=== PATIENT | female | born 1970 | race African-American/Black ===

== ENCOUNTER 2023-12-02 23:58 | Observation (INO) | payer SELFPAY ==
[2023-12-02] VITALS (7 sets, daily range): BP systolic 111–132; BP diastolic 86–96; BMI 28.6
--- NOTE | 2023-12-02 16:02 | ED.GENMED ---
History of Present Illness
General
Chief Complaint: Abdominal Symptoms
Source: patient
Exam Limitations: none
Time Seen by Provider: 12/02/23 15:48
Nursing documentation reviewed up to this point in time: agreed with
History of Present Illness
History of Present Illness:
53-year-old female presents emergency room complaining of pelvic pressure for 7 days. She was seen at [facility] on Sunday. She had some feet numbness, vaginal bleeding. She also notes chest pain and shortness of breath when walking
upstairs.
Past History
Past History
ED Past Medical History: Negative CAD or CHF
Social History
Tobacco: Non-smoker
Alcohol: None
Drug: None
Review of Systems
Review of Systems
Allergies reviewed?: Yes
All Other Systems: Not applicable
Constitutional: Reports no symptoms; Denies fever
EENT: Reports no symptoms
Respiratory: Reports trouble breathing
Cardiac: Reports chest pain
ABD/GI: Reports abdominal pain
: Reports no symptoms
Musculoskeletal: Reports no symptoms
Skin: Reports no symptoms
Neurological: Reports no symptoms
Endocrine: Reports no symptoms
Hematologic/Lymphatic: Reports no symptoms
Psychiatric: Reports no symptoms
Phy Exam
Physical Exam
Physical Exam:
Physical Exam
General: Appears uncomfortable, afebrile
Neck: supple. no meningeal signs. normal posterior pharynx
Heart: s1/s2 regular rate and rhythm, no murmur. equal radial
pulses.
HEENT: Pupils equal round reactive to light, EOMI
Lungs: no acute respiratory distress. clear bilaterally
Abdomen: normal bowel sounds. Left lower quadrant tenderness. No CVAT
Neuro: alert and oriented. no focal neurological deficits cranial nerves II through XII intact
Skin: no rash
Psychiatric: well kept. interactive and cooperative
Extremities: no edema. no calf tenderness. negative homans. good distal pulses
Scores
Heart Score for Chest Pain Patients
STEMI patient?: No
History: Slightly or Non-Suspicious
ECG: Normal
Age: >45 - <65 years
Risk Factors: 1 or 2 Risk Factors
Troponin: </= Normal Limit
Heart Score for Chest Pain Patients: 2
Heart Score Risk: 2.5% MACE over next 6 weeks
Course
Orders/Labs/Results
Orders:
Orders
12/02/23 15:16
EKG [Electrocardiogram (*1)] Urgent
Reason for Study: Chest Pain
EKG- Treatment ONCE
12/02/23 15:58
IV Insert/Care/Rem.- Treatment PRN
Ketorolac [Toradol] 15 mg IV NOW STA
Pulse Ox/cont/shift [RESP] Stat
Quantity: 1
12/02/23 15:59
CT Abd/Pel (IV only)-DH only Urgent
Comment:
Reason For Exam: LLQ abd pain
12/02/23 16:00
CMP [Comprehensive Metabolic Panel] Urgent
Complete Blood Count/With Diff Urgent
US Pelvis W Transvag Combined Urgent
Comment:
Reason For Exam: LLQ pelvic pain
12/02/23 16:05
Urinalysis Reflex To Culture Urgent
Date Specimen was Collected: 12/02/23
Time Specimen was Collected: 16:02
Urine Microscopic Reflex Cult Urgent
12/02/23 16:06
Troponin I Urgent
12/02/23 22:22
HYDROmorphone [Dilaudid] 0.25 mg IV NOW STA
Ketorolac [Toradol] 15 mg IV NOW STA
12/02/23 23:55
Admit/Transfer Patient As Directed
Co-Sign Provider:
Level of Care: Observation services
Assign to:: Telemetry
Physician / Group: Dharmesh/Hospitalist
Diagnosis: chest pain, left lower quadrant abdominal pain, vaginal bleeding
Reason for Telemetry: Chest Pain syndromes
Date to Stop Telemetry: 12/04/23
Time to Stop Telemetry: 11:00
PRN Pain Medication Management As Directed
May give lesser potent ordered pain med per pt: Yes
preference::
Protocol:: Medication orders for pain may be administered in a
manner that supports deferring to patient preference
when the pt is:
- Requesting an ordered lesser potent pain medication.
Least to most potent pain medications are defined
as: acetaminophen < NSAID < tramadol < opioids
(morphine, oxycodone, hydromorphone).
- Requesting a lesser dose of the same medication IF
ORDERED.
- Requesting a less intrusive route of administration
if both routes are prescribed by the provider (PO <
IV).
12/03/23 06:00
Levothyroxine [Synthroid] 200 mcg PO DAILY @ 0600
12/03/23 08:00
Lisinopril [Zestril] 10 mg PO DAILY
Sertraline HCl [Zoloft] 200 mg PO DAILY
12/04/23 11:00
DC Protocol for Telemetry ONCE
Abnormal Lab Results
12/02/23 12/02/23
16:00 16:05
RBC 3.52 L 10^6/uL
(4.20-5.40)
Hgb 11.9 L g/dL
(12.0-16.0)
Hct 34.9 L %
(37.0-47.0)
MCV 99.1 H fL
(81.0-99.0)
MCH 33.8 H pg
(27.0-31.0)
Abs Immat Gran (auto) 0.1 H 10^3/uL
(0-0.05)
Immature Gran % 0.6 H %
(0-0.5)
Lymphocytes % 17.8 L %
(20.5-51.1)
BUN 18 H mg/dl
(7-17)
Ur Occult Blood Reflex 2+ A
(Negative)
Urine RBC 3-6 A /HPF
(0-2)
Urine Bacteria (Reflex) Few A
(Negative)
12/02/23 16:00
12/02/23 16:00
Vital Signs
Initial and Last Documented VS:
Initial Vital Signs
Temp Pulse Resp BP Pulse Ox
97.8 F 82 16 121/87 100
12/02/23 15:23 12/02/23 15:23 12/02/23 15:23 12/02/23 15:23 12/02/23 15:23
Last Documented Vital Signs
Temp Pulse Resp BP Pulse Ox
98.0 F 89 18 130/88 100
12/03/23 19:17 12/03/23 19:17 12/03/23 19:17 12/03/23 19:17 12/03/23 19:17
MDM/Problems Addressed
Differential Diagnosis Includes:
Ovarian torsion, diverticulitis, UTI
MDM/Problems Addressed:
53-year-old female with left lower abdominal pain. Concern for cyst versus torsion versus diverticulitis. Ultrasound and CT scan pending.
*Radiology
Radiology exam reviewed: radiology read reviewed (CT abdomen pelvis shows no acute pathology, ventral hernia, sclerosis of left pubic symphysis, pelvic ultrasound shows small uterine fibroid normal ovarian blood flow, chest x-ray no acute findings)
*Pulse Oximetry
Patient hypoxic: no
*EKG
Interpreted by ED Provider?: Yes
EKG Intrepretation Date: 12/02/23
EKG Intrepretation Time: 15:16
Interpretation: normal
Comparison EKG: no comparison EKG present
Heart Rate: 73
Rate: normal
Rhythm: sinus
Elcho: normal axis
Interval: normal interval
QRS Pattern: normal QRS
Ischemia: no ischemia
*Rebar Bender Interpretation
Rate: normal
Interpretation: normal
Heart Rate: 70
Rhythm: sinus
*Critical Care Note
Total Time (30-74mins, 75-104mins- exclusive of procedures): Not Applicable
Update Note
Update Note:
Patient admitted for atypical chest pain, left lower quadrant pain, vaginal bleeding, incidental sclerosis of left pubic symphysis, peripheral neuropathy
ED Attending Note
-
Portions of this chart may have been created with voice recognition software.� Occasional wrong word or��sound alike� substitutions may have occurred due to the inherent limitations of voice recognition software.
Discharge Plan
Departure
Patient Disposition: Admit
Date of Disposition: 12/02/23
Time of Disposition: 23:55
Admit to: Telemetry
Presentation/result/management discussed w/ accepting MD/DO: Hospitalist
Patient with high blood pressure during this ER visit?: Yes
Condition: Good
Discharge Problem:
Chest pain, Peripheral neuropathy, Abdominal pain, left lower quadrant, Vaginal bleeding
Interventions
Interventions:
*Risk Screen - Suicide Last Done: 12/02/23 15:23
*General Assessment Last Done: 12/02/23 15:23
*Neglect/Abuse Screening Last Done: 12/02/23 15:23
ED- Fall Risk Assessment Last Done: 12/02/23 15:57
*ED COVID-19 Vaccine History Last Done: 12/02/23 15:23
*Nursing Disposition Last Done: 12/03/23 02:53
AM-Zxefwy-Cwaboxgzlb Assessment Last Done: 12/02/23 20:40
Discharge Date and Time
Discharge Date/Time: 12/03/23 02:53
[2023-12-02] MEDS: TORADOL 15 MG IV ×2 (16:06→22:30)
[2023-12-02 16:34] LABS: ALT (SGPT) 19 U/L (0-35); AST (SGOT) 33 U/L (14-36); Alkaline Phosphatase 89 U/L (38-126); Blood Urea Nitrogen 18 mg/dl (7-17); Calcium 10.2 mg/dl (8.4-10.2); Carbon Dioxide 25 mmol/L (22-30); Chloride 101 mmol/L (98-107); Estimated Creatinine Clearance 65 ml/min; Glucose 86 mg/dl (70-99); Potassium 4.6 mmol/L (3.5-5.1); Sodium 135 mmol/L (135-145); Total Bilirubin 0.7 mg/dl (0.2-1.3); eGFR > 60.00
[2023-12-02 16:47] LABS: Troponin I < 0.012 ng/ml
[2023-12-02 16:51] LABS: Urine Albumin Negative (Neg - Trace); Urine Bilirubin Negative (Negative); Urine Character Clear (Clear); Urine Color Yellow; Urine Glucose Negative (Negative); Urine Ketone Negative (Negative); Urine Leukocyte Negative (Negative); Urine Nitrite Negative (Negative); Urine Occult Blood 2+ (Negative); Urine Specific Gravity 1.015 (<1.030); Urine Urobilinogen Negative (Neg - 1+)
[2023-12-02 16:58] LABS: % Basophils 0.2 % (0-2); % Eosinophils 1.6 % (0-6); % Immature Granulocytes 0.6 % (0-0.5); % Lymphocytes 17.8 % (20.5-51.1); % Monocytes 6.8 % (1.7-9.3); Absolute Eosinophils 0.1 10^3/uL (0-0.7); Absolute Immature Granulocytes 0.1 10^3/uL (0-0.05); Absolute Lymphocytes 1.5 10^3/uL (1.2-3.4); Absolute Monocytes 0.6 10^3/uL (0.1-0.6); Absolute Neutrophils 6.2 10^3/uL (1.4-6.5); Hematocrit 34.9 % (37.0-47.0); Hemoglobin 11.9 g/dL (12.0-16.0); Mean Corp Hgb Conc. 34.1 g/dL (33.0-37.0); Mean Corpuscular Hgb 33.8 pg (27.0-31.0); Mean Corpuscular Volume 99.1 fL (81.0-99.0); Mean Platelet Volume 9.4 fL (7.4-10.4); Nucleated Red Blood Cells % 0 %; Platelet Count 354 10^3/uL (130-400); Red Blood Cell Count 3.52 10^6/uL (4.20-5.40); Red Cell Dist. Width 13.7 % (11.5-14.5); White Blood Cell Count 8.5 10^3/uL (4.8-10.8)
[2023-12-02 16:59] LABS: Urine Bacteria Few (Negative); Urine White Cell 0-2 /HPF (0-5)
--- NOTE | 2023-12-02 20:48 | EDRN ---
Pt complains of chest pressure in the middle of her chest that 'feels like somebody is sitting on it' and started today. Pressure is constant and sometimes radiates into R chest 'and it feels like I swallowed something and it got stuck.' Pt also
has LLQ abdominal pain that waxes and wanes since yesterday. Pt says she 'felt like I was kicked in my back and side yesterday and I suddenly vomited.' Pt adds she had what seemed like a period yesterday that started around 0100. Pt had not had a
period in 4-5 years. Today, blood dried up and pt reports spotting only. Pt feels she is retaining water and says her hands and feet feel swollen. Pt has had chills and dry cough. No fever. Pt notes burning at the end of urination and says she
has frequency which is normal for her. No n/v now but she did have it yesterday. No sob, weakness, dizziness.
[2023-12-02] MEDS: DILAUDID 0.25 MG IV (22:32)
[2023-12-03] VITALS (9 sets, daily range): BP systolic 95–130; BP diastolic 62–93; BMI 27.9
--- NOTE | 2023-12-03 00:12 | HPS.HSE ---
Addendum entered and electronically signed by Alexandrea Barroso DO 12/03/23 01:19:
n/a
Original Note:
Family Physician
-
Family Physician: * NONE
Chief Complaint
-
Chest pain, left lower quadrant abdominal pain, vaginal bleeding
History of Present Illness
The patient is a 53 year old woman with PMH significant for Grave's disease, GERD, HLD, tension headache, IBS, MDD, PTSD who presents to the ED initially with substernal chest pain that feels like a lump in the throat, non-radiating, improved
currently. She also had episode of vaginal bleeding yesterday and today(after 4 years of no menses), associated with low back pain and the sensation of feeling like she was kicked in the left lower quadrant. She also is c/o numbness and tingling in
the b/l feet. Pain is improving in the ED p Toradol and Dilaudid. No focal neuro deficits, no SOB currently, no palpitations, no syncope, no ESPARZA, no LOC, no dysuria, no GI bleeding. CT a/p and US pelvis performed in ED.
Medical History
Past Medical History
Past Medical History: Reports GERD, Hypercholesterolemia, Psychiatric (MDD, PTSD) and Other (tension headache, IBS, )
Past Surgical History: Reports Other (breast biopsy, hemorrhoidectomy , partial thyroidectomy)
Social History
Tobacco: Non-smoker
Alcohol: Occasional
Family History
Family History: Cancer (breast-mom) and Other (cerebral aneurysm, mom-colon polyps, Lupus, stroke)
Allergies / Home Medications
Allergies reflects when Allergies were last updated in [facility].
Home Medications with original date entered in [facility]
Allergy/Medication List:
Allergies
Allergy/AdvReac Type Severity Reaction Status Date / Time
No Known Allergies Allergy Verified 12/02/23 15:32
Home Medications
Wellbutrin 1 tab PO DAILY 12/02/23 -dose pending med rec
levothyroxine 200 mcg tablet (Synthroid) 200 mcg PO DAILY 12/02/23
lisinopril 10 mg tablet 10 mg PO DAILY 12/02/23
sertraline 200 mg capsule 200 mg PO DAILY 12/02/23
Review of Systems
-
A 12 point ROS was completed and negative except as noted: Yes
Physical Exam
Vital Signs
Vital Signs
Temp Pulse Resp BP Pulse Ox
97.8 F 82 16 130/93 100
12/02/23 20:40 12/03/23 00:00 12/02/23 20:40 12/03/23 00:00 12/02/23 20:40
Physical Exam
General: Well Developed, Well Nourished, No Apparent Distress, Comfortable and Conversant
HEENT: NormoCephalic, Anicteric and Moist mucous membranes
Respiratory: Clear
Cardiac: S1/S2 and Regular Rhythm
GI: Soft, Non Tender, Non Distended and Normal Bowel Sounds
Musculoskeletal: No Clubbing, No Cyanosis and No Edema
Skin: Warm and Dry
Neuro: AO x 3, No Motor Deficits and Nonfocal/grossly intact
Psych: Calm
Laboratory Results
-
12/02/23 16:00
12/02/23 16:00
Laboratory Results
Total Bilirubin 0.7 mg/dl (0.2-1.3) 12/02/23 16:00
AST 33 U/L (14-36) 12/02/23 16:00
ALT 19 U/L (0-35) 12/02/23 16:00
Alkaline Phosphatase 89 U/L (38-126) 12/02/23 16:00
Troponin I < 0.012 ng/ml 12/02/23 16:06
Data Reviewed
-
CT Scan: Report Reviewed by me
Medical Tests (Nuc Med, Echo, EKG etc): Report Reviewed by me
Impression/Plan
-
IMPRESSION: The patient is a 53 year old woman with PMH significant for Grave's disease, GERD, HLD, tension headache, IBS, MDD, PTSD who presents to the ED initially with substernal chest pain that feels like a lump in the throat, non-radiating,
improved currently. She also had episode of vaginal bleeding yesterday and today(after 4 years of no menses), associated with low back pain and the sensation of feeling like she was kicked in the left lower quadrant. She also is c/o numbness and
tingling in the b/l feet.
#Atypical chest pain, risk factors of HTN, HLD
-admit obs, tele monitoring
-serial troponin
-repeat EKG prn
-aspirin one dose now
-cardiac labs in am
#Left lower quadrant pain a/w vaginal bleeding, new onset
-no ovarian torsion, view of ovaries limited on US, no visualized masses, no free fluid, noted Small degenerated uterine fibroid
- No acute pathology of the abdomen or pelvis identified on CT a/p-there is small fat-containing ventral hernia without incarceration nor strangulation
-hgb 11.9, repeat in am
-Comptometer Operator consulted regarding uterine findings and vaginal bleeding
# Incidental finding on CT- Sclerosis of the left pubic symphysis, unknown etiology- unlikely to be etiology of pain though this is possible, ED physician told patient about this result
-per my discussion she is up to date on preventative care including mammo/colonoscopy, unknown regarding pap smear
-Calcium is normal, albumin is top normal 5.0
-Discuss for team in the morning to address with consultation- to consider further work-up/imaging as inpatient vs outpatient with further imaging/lab work
#Neuropathy, peripheral
-MCV elevated 99.1, check B-12 and folate levels
#MDD
-continue home meds (need med rec for Wellbutrin 1 tab PO DAILY -dose pending med rec
#Graves disease
-levothyroxine 200 mcg tablet (Synthroid) 200 mcg PO DAILY
#HTN
-contlisinopril 10 mg tablet 10 mg PO DAILY 12/02/23
sertraline 200 mg capsule 200 mg PO DAILY 12/02/23
DVT proph-PCDs
Full Code
[2023-12-03] MEDS: LOW STRENGTH ASPIRIN 81 MG PO (00:18)
[2023-12-03] MEDS: ULTRAM 50 MG PO ×3 (03:39→16:24)
[2023-12-03] MEDS: NSS 1000 IV (03:39)
[2023-12-03 04:02] LABS: Troponin I < 0.012 ng/ml
[2023-12-03] MEDS: SYNTHROID 200 MCG PO (05:43)
[2023-12-03 07:37] LABS: Hematocrit 33.3 % (37.0-47.0); Hemoglobin 11.2 g/dL (12.0-16.0); Mean Corp Hgb Conc. 33.6 g/dL (33.0-37.0); Mean Corpuscular Hgb 33.2 pg (27.0-31.0); Mean Corpuscular Volume 98.8 fL (81.0-99.0); Mean Platelet Volume 9.2 fL (7.4-10.4); Platelet Count 330 10^3/uL (130-400); Red Blood Cell Count 3.37 10^6/uL (4.20-5.40); Red Cell Dist. Width 13.4 % (11.5-14.5)
[2023-12-03] MEDS: ZOLOFT 200 MG PO (07:41)
[2023-12-03] MEDS: ZESTRIL 10 MG PO (07:42)
[2023-12-03 07:57] LABS: Troponin I < 0.012 ng/ml
[2023-12-03 08:06] LABS: Blood Urea Nitrogen 19 mg/dl (7-17); Calcium 9.6 mg/dl (8.4-10.2); Carbon Dioxide 27 mmol/L (22-30); Chloride 102 mmol/L (98-107); Estimated Creatinine Clearance 53 ml/min; Glucose 91 mg/dl (70-99); Potassium 4.2 mmol/L (3.5-5.1); Sodium 136 mmol/L (135-145); eGFR 59.34
[2023-12-03 09:09] LABS: Folate 11.5 ng/ml (2.76-20); Vitamin B12 313 pg/ml (239-931)
[2023-12-03] MEDS: MIRALAX 17 GRAMS PO (10:24)
--- NOTE | 2023-12-03 12:52 | CM ---
Patient seen bedside, initial assessment completed. Patient resides independently in a multiple story home, one step to enter. Patients daughter sometimes lives with patient. Patient denies DME, VN, or SNF. Patient PCP [facility], pharmacy [facility]
Kamran López. Patient currently does not have insurance, agreeable to referral to [facility]. OBS form reviewed, refused to sign, placed in chart, patient provided with copy. Patient son in to visit. CM will continue to follow for all
discharge planning needs.
Plan; home no needs likely, referral made to [facility].
--- NOTE | 2023-12-03 13:28 | W.PN.HOSP.TC ---
Today's Communication/Plan
-
Chest x-ray to rule out rib fractures
MRI to assess for cause of radiculopathy
Start lidocaine patch
Assessment / Plan
Assessment / Plan
#Atypical chest pain -- risk factors of HTN, HLD
-Very low suspicion for cardiac cause
-Symptomatology not consistent, ECG is unremarkable Trop negative x 3
-Appears to be some reproducibility upon palpation to the chest wall today
-See no reason to continue with aspirin, will DC
-Will start lidocaine patch for chest wall
-Ordered chest x-ray to rule out previous fracture
#Left lower quadrant pain a/w vaginal bleeding, new onset
-no ovarian torsion, view of ovaries limited on US, no visualized masses, no free fluid, noted Small degenerated uterine fibroid
-No acute pathology CT A/P, there is small fat-containing ventral hernia without incarceration nor strangulation
-Hemoglobin trend 11.9 on arrival, 11.2 this morning though no more active bleeding per the patient
-Real Estate Executive Assistant consulted regarding uterine findings and vaginal bleeding
-Plan to follow-up gynecology recommendations
#Incidental finding on CT- Sclerosis of the left pubic symphysis
-unknown etiology- unlikely to be etiology of pain though this is possible, ED physician told patient about this result
-Previous hospitalist had discussion on routine cancer screening, it appears that she is up-to-date
-No signs of excessive bone turnover on labs, calcium normal as well as phosphorus
-Calcium is normal, albumin is top normal 5.0
-Discuss for team in the morning to address with consultation
#Neuropathy, peripheral
-MCV elevated 99.1, check B-12 and folate levels; may be related to hypothyroid history
-States that she has 'shock' like pain shooting down both legs
-Cannot rule out radiculopathy as well, ordered MRI lumbar spine to further assess
#MDD
-continue home meds
-No signs of acute depression, SI/HI negative
#H/O Graves disease
#Iatrogenic hypothyroidism
-No longer on antithyroid medications, suspect previous ablation or radioiodine therapy
-Home regimen includes levothyroxine 200 mcg daily, no signs or symptoms of normal thyroid function
#HTN
-Home medications include lisinopril 10 mg daily
-No known history of hypertensive systemic disease
-BP currently well-controlled
DVT proph-SCDs
Full Code
Anticipated Discharge: Within 24 hours
Subjective/Interval History
-
Date of Service: December 03, 2023
Objective Data
-
Labs:
Laboratory Results
12/03/23
07:15
WBC 6.0
Hgb 11.2 L
Hct 33.3 L
Plt Count 330
Sodium 136
Potassium 4.2
Chloride 102
Carbon Dioxide 27
BUN 19 H
Creatinine 1.1 H
Glucose 91
Calcium 9.6
Vital Signs:
Vital Signs
Temp Pulse Resp BP Pulse Ox
98.0 F 81 17 109/73 99
12/03/23 12:25 12/03/23 12:25 12/03/23 12:25 12/03/23 12:25 12/03/23 12:25
I&O
12/02/23 12/03/23 12/04/23
06:59 06:59 06:59
Intake Total 300 / 300
Balance 300 / 300
[2023-12-03] MEDS: SENOKOT-S 1 TABLET PO (16:02)
[2023-12-03] MEDS: LIDOCAINE 4% PATCH 1 PATCH TOPICAL (16:04)
--- NOTE | 2023-12-03 16:49 | CON.MD ---
Consultation - Medical
-
53yo presented to the ER yesterday due to chest pain, Low back pain, numbness of her feet, left lower quadrant pain and PMB. CONCRETE TRUCK DRIVER consulted to further evaluate her PMB. Patient states that she noticed sudden onset of 'moderate' bleeding 2 days
ago with associated LLQ pain, and pelvic pressure. She states the pain was exacerbated by lifting, bending, sitting and BM. The bleeding has since essentially resolved, noticed brown earlier today. The pressure in the pelvis also seems to have
resolved. Patient says she is 4 years post menopause, she denies trauma/intercourse prior to the onset of her bleeding. She denies noticing a mass/bulge in the vagina. She does have Urge incontinence > stress urinary incontinence. She has not seen
a CONCRETE TRUCK DRIVER in a while.
PMHx: grave's disease, PTSD, IBS, tension ESPARZA, HLD, GERD
PSHx: hemorrhoidectomy, anal fissure repair, benign breast lumpectomy
POBHx: SVDx2
PGYNHx: none significant
SHx:+ soc etoh, no ill/tobacco
FHx: Mom- breast CA, stroke, Lupus, colon polyps
Meds: see med list
All: NKDA
Vitals & Labs: See Below
gen: nad aaox3
abd: soft, nt, nd
Pelvic: inspection of the labia reveal no lesions/ulcers/erythema/discoloration. once labia is spread there is a small <1cm red/purple nodule at the left hymenal ring. non tender on palpation, no blood able to be expressed. no underlying cystic
structure palpable within the vagina/labia.
SSE: scant amount of white discharge in vagina, no new or old blood noted within the vagina or at the cervix. cervix is normal in appearance
SVE: no CMT, no uterine ttp, no adnexal mass palpable
Pelvic US: Uterus 7x 2.5x 5cm contains a small submucosal calcified fibroid 1cm. EMS evaluation is limited but measures 0.4cm. Ovaries view also limited. Right ovary 2.9cm. Left ovary 3.9cm. No adnexal mass seen. No free fluid in pelvis
A/P: 53yp HD#2 with Chest pain, neuropathy, LLQ pain and PMB
1. Vaginal Bleeding:
-seems to have resolved now. Hgb is stable
-I reviewed Pelvic US and exam findings with the patient. Her US is limited but overall unremarkable. No thickening of the endometrium. I do not think her bleeding was uterine in origin. Rather, I suspect the nodular lesion in the vagina was the
source of her bleeding, it could be that she had a cyst or hematoma in this area that ruptured. This could explain why she was also feeling pressure in the region that has since resolved. However, I cannot say with certainty as I only see a small
nodular lesion now. At this time, I do not recommend any other intervention while in the hospital but I did encourage her to follow up for routine CONCRETE TRUCK DRIVER care as an outpatient, this will also allow us to reevaluate the lesion for complete resolution or
change.
Encounter, discussion, review of imaging and Documentation Time= 40 minutes.
Vital Signs / Labs
-
Vital Signs and Labs:
Temp Pulse Resp BP Pulse Ox
98.0 F 92 18 95/77 99
12/03/23 15:07 12/03/23 15:07 12/03/23 15:07 12/03/23 15:07 12/03/23 15:07
12/03/23 07:15
12/03/23 07:15
12/02/23 12/02/23 12/03/23
16:00 16:05 07:15
RBC 3.52 L 3.37 L
Hgb 11.9 L 11.2 L
Hct 34.9 L 33.3 L
MCV 99.1 H
MCH 33.8 H 33.2 H
Abs Immat Gran (auto) 0.1 H
Immature Gran % 0.6 H
Lymphocytes % 17.8 L
BUN 19 H
Creatinine 1.1 H
Ur Occult Blood Reflex 2+ A
Urine RBC 3-6 A
Urine Bacteria (Reflex) Few A
[2023-12-03] MEDS: DILAUDID 0.25 MG IV ×2 (18:18→23:47)
[2023-12-04 03:19] VITALS: BP 113/69
[2023-12-04] MEDS: SYNTHROID 200 MCG PO (04:55)
[2023-12-04 05:33] VITALS: BMI 27.9
[2023-12-04 06:45] LABS: % Basophils 0.2 % (0-2); % Eosinophils 2.2 % (0-6); % Immature Granulocytes 0.6 % (0-0.5); % Lymphocytes 25.2 % (20.5-51.1); % Neutrophils 63.8 % (42.2-75.2); Absolute Eosinophils 0.1 10^3/uL (0-0.7); Absolute Lymphocytes 1.4 10^3/uL (1.2-3.4); Absolute Monocytes 0.4 10^3/uL (0.1-0.6); Absolute Neutrophils 3.4 10^3/uL (1.4-6.5); Hematocrit 33.9 % (37.0-47.0); Hemoglobin 11.4 g/dL (12.0-16.0); Mean Corp Hgb Conc. 33.6 g/dL (33.0-37.0); Mean Corpuscular Hgb 34.3 pg (27.0-31.0); Mean Corpuscular Volume 102.1 fL (81.0-99.0); Mean Platelet Volume 9.4 fL (7.4-10.4); Nucleated Red Blood Cells % 0 %; Platelet Count 332 10^3/uL (130-400); Red Blood Cell Count 3.32 10^6/uL (4.20-5.40); Red Cell Dist. Width 13.3 % (11.5-14.5); White Blood Cell Count 5.4 10^3/uL (4.8-10.8)
[2023-12-04 06:59] LABS: Blood Urea Nitrogen 13 mg/dl (7-17); Calcium 9.6 mg/dl (8.4-10.2); Carbon Dioxide 22 mmol/L (22-30); Chloride 106 mmol/L (98-107); Estimated Creatinine Clearance 64 ml/min; Glucose 95 mg/dl (70-99); Potassium 4.5 mmol/L (3.5-5.1); Sodium 135 mmol/L (135-145); eGFR > 60.00
[2023-12-04 07:00] VITALS: BP 118/79
[2023-12-04] MEDS: LIDOCAINE 4% PATCH 1 PATCH TOPICAL (07:42)
[2023-12-04] MEDS: ZOLOFT 200 MG PO (07:43)
[2023-12-04] MEDS: ZESTRIL 10 MG PO (07:43)
[2023-12-04] MEDS: ULTRAM 50 MG PO (07:52)
--- NOTE | 2023-12-04 09:43 | W.PN.HOSP.TC ---
Today's Communication/Plan
-
Famotidine for indigestion
Discharge, outpatient follow up with gynecology and neurosurgery
Assessment / Plan
Assessment / Plan
#Atypical chest pain -- suspect dyspepsia/GERD
-Very low suspicion for cardiac cause; seems more like indigestion, no red flag symptoms for
-Symptomatology not consistent, ECG is unremarkable Trop negative x 3
-Appears to be some reproducibility upon palpation to the chest wall today
-Ordered famotidine, will provide prescription at discharge
-Should follow-up with PCP, consider PPI and EGD if worsening
#Left lower quadrant pain a/w vaginal bleeding, new onset -- suspected vaginal cyst rupture
-no ovarian torsion, view of ovaries limited on US, no visualized masses, no free fluid, noted Small degenerated uterine fibroid
-No acute pathology CT A/P, there is small fat-containing ventral hernia without incarceration nor strangulation
-Hemoglobin trend 11.9 on arrival, 11.2 this morning though no more active bleeding per the patient
-Lead Die Molder consulted regarding uterine findings and vaginal bleeding
-Gynecology recommending outpatient follow-up
#Incidental finding on CT- Sclerosis of the left pubic symphysis
-unknown etiology- unlikely to be etiology of pain though this is possible, ED physician told patient about this result
-Previous hospitalist had discussion on routine cancer screening, it appears that she is up-to-date
-No signs of excessive bone turnover on labs, calcium normal as well as phosphorus
-Calcium is normal, albumin is top normal 5.0; denies any recent weight loss or other symptoms
-Low suspicion for process, but should have follow-up imaging with PCP after DC
#Neuropathy, peripheral
#Lumbosacral radiculopathy
-MCV elevated 99.1, check B-12 and folate levels; may be related to hypothyroid history
-States that she has 'shock' like pain shooting down both legs
-MRI of the spine does show worsening foraminal stenosis likely causing radicular symptoms
#MDD
-continue home meds
-No signs of acute depression, SI/HI negative
#H/O Graves disease
#Iatrogenic hypothyroidism
-No longer on antithyroid medications, suspect previous ablation or radioiodine therapy
-Home regimen includes levothyroxine 200 mcg daily, no signs or symptoms of normal thyroid function
#HTN
-Home medications include lisinopril 10 mg daily
-No known history of hypertensive systemic disease
-BP currently well-controlled
DVT proph-SCDs
Full Code
Anticipated Discharge: Today
Subjective/Interval History
-
Date of Service: December 04, 2023
Feels better today. States she still has some pressure in the chest, associated with some belching. Also has occasional reflux symptoms outside of the hospital that she says comes in waves. Lidocaine patch provided some mild relief. Ordered
famotidine for now
Objective Data
-
Labs:
Laboratory Results
12/04/23
04:54
WBC 5.4
Hgb 11.4 L
Hct 33.9 L
Plt Count 332
Sodium 135
Potassium 4.5
Chloride 106
Carbon Dioxide 22
BUN 13
Creatinine 0.9
Glucose 95
Calcium 9.6
Vital Signs:
Vital Signs
Temp Pulse Resp BP Pulse Ox
97.4 F 72 18 118/79 99
12/04/23 07:00 12/04/23 07:00 12/04/23 07:00 12/04/23 07:00 12/04/23 07:00
I&O
12/03/23 12/04/23 12/05/23
06:59 06:59 06:59
Intake Total 300 / 300 1380 / 1380
Balance 300 / 300 1380 / 1380
Review of Systems
-
History Source: Patient
Constitutional: Reports No Symptoms
Respiratory: Reports No Symptoms
Cardiac: Reports No Symptoms
Abdomen/GI: Reports Indigestion; Denies Abdominal Pain, Nausea, Vomiting, Diarrhea or Black Stools
Genitourinary: Reports No Symptoms
Musculoskeletal: Reports No Symptoms
Skin: Reports No Symptoms
Neuro: Reports No Symptoms
Physical Exam
-
General: Well Nourished, No Apparent Distress and Comfortable
HEENT: Normocephalic, Atraumatic and Moist Mucous Membranes
Respiratory: Clear to Auscultation and Non Labored Respirations
Cardiac: Regular Rhythm and S1/S2; Negative Murmur, Rub or Gallop
GI: Soft, Nontender, Nondistended and Normal Bowel Sounds; Negative Organomegaly
Musculoskeletal: No Clubbing, No Cyanosis and No Edema
Skin: Warm and Dry; Negative Rash or Jaundice
Neuro: AO x 3, Nonfocal/Grossly Intact and Central Nerve's Intact
Data Reviewed
-
Diagnostic Radiology: Image personally visualized and interpreted and Discussed with Patient
MRI: Report Reviewed by me and Discussed with Patient
--- NOTE | 2023-12-04 09:56 | W.DCSUMMARY ---
Discharge Summary
Discharge Data
Date of Admission: 12/02/23
Date of Discharge: 12/04/23
-
Pending Results: No
Hospital Course
Presented to hospital with atypical chest pain, negative cardiac workup including ECG/telemetry and troponin trend. Symptomatically appeared more consistent with chest wall etiology versus dyspepsia. Minimal improvement with lidocaine patch, was
started on famotidine for dyspepsia. Prescription sent for famotidine twice daily as needed for acid reflux symptoms.
Also had associated left lower quadrant abdominal pain with vaginal bleeding. Was seen by gynecology in the office, imaging including CT and ultrasound were without any acute findings concerning for source of bleed. Suspected vaginal cyst versus
hematoma rupture, recommended follow-up with outpatient hand tile maker.
CT scan in the hospital did show a questionable pubic lesion. Per documentation she is up-to-date on cancer screening, suspected this is an artifactual finding rather than true lesion. She should have a follow-up CT or MRI in the outpatient
setting to reassess. Referral for primary care physician provided in case she needed 1.
Lastly, MRI of the lumbar spine was obtained due to radicular symptoms. Does show worsening lumbosacral foraminal stenosis, likely source of radiculopathy. Provided referral for neurosurgery, consideration of corticosteroid injections and other
conservative versus invasive measures
Discharge Plan
-
Patient Disposition: Home (Routine Discharge)
Discharge Diagnosis/Procedures: Atypical chest pain/dyspepsia
Lumbar radiculopathy
Abnormal finding on pelvic CT -- suspect artifact
Condition: Good
Diet: No restrictions
Additional Diets: Avoid foods that cause you acid reflux symptoms
Activity: As tolerated
Driving Restrictions: As prior to admission
Other Services: PT and OT
Referrals:
NONE,* [Family Provider] -
Fabiola Yang MD [Active] - in one to two months
Garry Lambert MD [Active] - in two weeks (Call to schedule, can order repeat imaging for possible pelvic bone lesion)
Prescriptions:
New
famotidine 40 mg tablet
40 mg PO BID PRN (Reason: dyspepsia/Acid reflux) Qty: 60 0RF
Continued
lisinopril 10 mg Tablet
10 mg PO DAILY
levothyroxine [Synthroid] 200 mcg Tablet
200 mcg PO DAILY
sertraline 200 mg Capsule
200 mg PO DAILY
Wellbutrin
1 tab PO DAILY
Patient Comments:
pt does not know mg
alprazolam [Xanax] 1 mg Tablet
1.5 mg PO HS PRN (Reason: insomnia)
Discharge Orders:
Discharge Patient (As Directed); Ordered 12/04/23
Ordered By: Aristeo Holt
Discharge Date and Time
Print Language: GEORGIAN
[2023-12-04] MEDS: PEPCID 40 MG PO (10:01)
--- NOTE | 2023-12-04 10:51 | CM ---
Patient seen bedside, patient requesting prune juice as she feels constipated, updated nurse. Patient reports she has transportation home. CM will continue to follow for all discharge planning needs.
Plan; home no needs.
[2023-12-04 11:00] VITALS: BP 146/71
== END 2023-12-04 13:21 | disposition home or self-care (01) ==
LOC: 4 WEST ACU 23:58
PROVIDERS: ADMITTING PHYSICIAN Internal Medicine; ATTENDING PHYSICIAN Internal Medicine; EMERGENCY PHYSICIAN Emergency Medicine; FAMILY PHYSICIAN Family Medicine; OTHER PHYSICIAN Obstetrics & Gynecology
DX: R10.13 Epigastric pain (principal); R07.2 Precordial pain; R10.9 Unspecified abdominal pain; M54.17 Radiculopathy, lumbosacral region; R20.0 Anesthesia of skin; N93.9 Abnormal uterine and vaginal bleeding, unspecified; M48.061 Spinal stenosis, lumbar region without neurogenic claudication; G62.9 Polyneuropathy, unspecified; R06.02 Shortness of breath; R10.2 Pelvic and perineal pain; K43.9 Ventral hernia without obstruction or gangrene; I10 Essential (primary) hypertension; E03.9 Hypothyroidism, unspecified; D25.9 Leiomyoma of uterus, unspecified; E05.00 Thyrotoxicosis with diffuse goiter without thyrotoxic crisis or storm; K21.9 Gastro-esophageal reflux disease without esophagitis; K58.9 Irritable bowel syndrome, unspecified; F32.9 Major depressive disorder, single episode, unspecified; F43.10 Post-traumatic stress disorder, unspecified; E78.00 Pure hypercholesterolemia, unspecified; G44.209 Tension-type headache, unspecified, not intractable; Z83.719 Family history of colon polyps, unspecified; Z82.3 Family history of stroke; Z79.890 Hormone replacement therapy; Z80.3 Family history of malignant neoplasm of breast
CPT/HCPCS: 71046; 72148; 74177; 76830; 76856; 80048; 80053; 81003; 81015; 82607; 82746; 84484; 85025; 85027; 93005; 96374; 96375; 96376; 99285; Q9967